=== PATIENT | female | born 1980 | race Caucasian/White ===

== ENCOUNTER 2025-01-24 17:35 | Emergency (ER) | payer BC, OTHER ==
[2025-01-24 19:00] LABS: APPEARANCE,URINE CLEAR; BILIRUBIN,URINE NEGATIVE (NEGATIVE); COLOR,URINE YELLOW; GLUCOSE,URINE NEGATIVE (NEGATIVE); KETONES,URINE NEGATIVE (NEGATIVE); LEUKOCYTE ESTERASE,URINE TRACE (NEGATIVE); NITRITE,URINE NEGATIVE (NEGATIVE); OCCULT BLOOD,URINE TRACE-INTACT (NEGATIVE); PROTEIN,URINE NEGATIVE (NEGATIVE); UROBILINOGEN,URINE 0.2 EU/dL (<2.0)
[2025-01-24 19:10] LABS: BACTERIA,URINE FEW (NEGATIVE); EPITHELIAL CELLS,URINE RARE (NONE-FEW); RBC,URINE 0-1 (0-2/HPF); WBC,URINE 0-2 (0-5/HPF)
[2025-01-24 19:13] LABS: BASOPHILS ABSOLUTE AUTO 0.02 K/uL (0.00-0.20); BASOPHILS PERCENT AUTO 0.3 % (0.0-1.0); EOSINOPHILS ABSOLUTE AUTO 0.24 K/uL (0.00-0.45); EOSINOPHILS PERCENT AUTO 3.3 % (0.0-6.0); HEMATOCRIT 42.2 % (37.0-47.0); HEMOGLOBIN 14.7 g/dL (12.0-16.0); IMMATURE GRAN ABSOLUTE AUTO 0.03 K/uL (0.00-0.05); IMMATURE GRAN PERCENT AUTO 0.4 % (0.0-0.4); LYMPHOCYTES ABSOLUTE AUTO 1.48 K/uL (1.00-4.80); LYMPHOCYTES PERCENT AUTO 20.5 % (24.0-44.0); MEAN CORPUSCULAR HGB CONC 34.8 g/dL (32.0-36.0); MEAN PLATELET VOLUME 10.4 fL (9.4-12.3); MONOCYTES ABSOLUTE AUTO 0.37 K/uL (0.00-0.80); MONOCYTES PERCENT AUTO 5.1 % (0.0-8.0); NEUTROPHILS ABSOLUTE AUTO 5.08 K/uL (1.80-7.70); NEUTROPHILS PERCENT AUTO 70.4 % (41.0-71.0); PLATELET COUNT,PLT 235 K/uL (150-400); RED BLOOD CELL COUNT 4.74 M/uL (4.10-5.30); WHITE BLOOD CELL COUNT,WBC 7.22 K/uL (3.9-11.3)
[2025-01-24 19:38] LABS: A/G RATIO 1.1 (0.9-1.6); ALBUMIN 3.9 g/dL (3.4-5.0); BILIRUBIN TOTAL 0.4 mg/dL (0.2-1.0); CALCIUM 9.3 mg/dL (8.5-10.1); CARBON DIOXIDE,CO2 24.3 mmol/L (21.0-32.0); CREATININE 0.9 mg/dL (0.6-1.0); EST CRCL DRUG DOSING (CG) 81.3 mL/min; POTASSIUM,K 4.1 mmol/L (3.5-5.1); PROTEIN TOTAL,TP 7.5 g/dL (6.4-8.2)
[2025-01-24] MEDS: Cyclobenzaprine 10 MG Tab PO ONE (20:48)
[2025-01-24 21:05] VITALS: BP 139/81; PULSE 74
== END 2025-01-24 20:56 | disposition home or self-care (01) ==
LOC: MW.ED 17:35
DX: R10.9 Unspecified abdominal pain (principal); R10.2 Pelvic and perineal pain
CPT/HCPCS: 36415; 80053; 81001; 85025; 87086; 99284; A9270; 99283